=== PATIENT | female | born 1975 | race Caucasian/White ===

== ENCOUNTER 2018-12-17 09:15 | Emergency (ER) | payer OTHER ==
[~2018-12-17] VITALS: Ht 162.6 cm; Wt 122.5 kg
[2018-12-17] MEDS ORDERED: KETOROLAC 30 MG/ML VIAL. IV ONE (09:45)
[2018-12-17] MEDS ORDERED: METOCLOPRAMIDE HCL 10 MG/2 ML VIAL. IV ONE (09:45)
--- NOTE | 2018-12-17 09:49 | PHYS DOC ---
Adult General Chief Complaint Chief Complaint: ABDOMINAL PAIN HPI HPI Patient is a 43 year old female with history of diabetes type 2, hypothyroidism , who presents today complaining of 9 out of 10 left lower quadrant abdominal pain with nausea that began yesterday. Patient describes the pain as sharp and constant. Denies anything alleviating or exacerbating the pain. She states she has history of chronic constipation and occasionally takes MiraLAX. She does not remember her last bowel movement. She states she is on several medications that make her constipated. (NIKKI FREGOSO APRN) Review of Systems Review of Systems Constitutional: Denies fever or chills [] Eyes: Denies change in visual acuity, redness, or eye pain [] HENT: Denies nasal congestion or sore throat [] Respiratory: Denies cough or shortness of breath [] Cardiovascular: No additional information not addressed in HPI [] GI: Reports left lower quadrant abdominal pain, denies vomiting, bloody stools or diarrhea [] : Denies dysuria or hematuria [] Musculoskeletal: Denies back pain or joint pain [] Integument: Denies rash or skin lesions [] Neurologic: Denies headache, focal weakness or sensory changes [] All other systems were reviewed and found to be within normal limits, except as documented in this note. (NIKKI FREGOSO APRN) Current Medications Current Medications Current Medications Medications (Trade) Dose Ordered Sig/[place] Start Time Stop Time Status Last Admin Dose Admin Ketorolac Tromethamine (Toradol 30mg Vial) 30 mg 1X ONCE 12/17/18 09:45 12/17/18 09:49 DC 12/17/18 10:43 30 MG Magnesium Citrate (Citroma) 296 ml 1X ONCE 12/17/18 11:15 12/17/18 11:16 DC 12/17/18 11:05 296 ML Metoclopramide HCl (Reglan Vial) 10 mg 1X ONCE 12/17/18 09:45 12/17/18 09:49 DC 12/17/18 10:43 10 MG Sodium Chloride 1,000 ml @ 1,000 mls/hr 1X ONCE 12/17/18 10:00 12/17/18 10:59 DC 12/17/18 10:41 1,000 MLS/HR (FIFI MONSALVE MD) Allergies Allergies Allergies Coded Allergies Type Severity Reaction Last Updated Verified morphine Allergy Intermediate Shortness of Air 12/17/18 Yes topiramate Allergy Intermediate Rash 12/17/18 Yes ondansetron Adverse Reaction Mild Nausea 12/17/18 Yes (FIFI MONSALVE MD) Physical Exam Physical Exam Constitutional: Well developed, well nourished, no acute distress, non-toxic appearance. [] HENT: Normocephalic, atraumatic, bilateral external ears normal, oropharynx moist, no oral exudates, nose normal. [] Eyes: PERRLA, EOMI, conjunctiva normal, no discharge. [] Neck: Normal range of motion, no tenderness, supple, no stridor. [] Cardiovascular:Heart rate regular rhythm, no murmur [] Lungs & Thorax: Bilateral breath sounds clear to auscultation [] Abdomen: Obese abdomen. Bowel sounds normal, soft, mild tenderness on palpation of the left lower quadrant, no right upper quadrant or right lower quadrant tenderness, no masses, no pulsatile masses. [] Skin: Warm, dry, no erythema, no rash. [] Back: No tenderness, no CVA tenderness. [] Extremities: No tenderness, no cyanosis, no clubbing, ROM intact, no edema. [] Neurologic: Alert and oriented X 3, normal motor function, normal sensory function, no focal deficits noted. [] Psychologic: Affect normal, judgement normal, mood normal. [] (NIKKI FREGOSO APRN) Current Patient Data Vital Signs Vital Signs Date Time Temp Pulse Resp B/P (MAP) Pulse Ox O2 Delivery O2 Flow Rate FiO2 12/17/18 12:41 90 18 130/72 (91) 98 Room Air 12/17/18 09:44 98.3 98.3 (FIFI MONSALVE MD) Lab Values Laboratory Tests Test 12/17/18 09:47 12/17/18 11:08 12/17/18 11:20 Glucose (Fingerstick) 291 mg/dL (70-99) H White Blood Count 6.4 x10^3/uL (4.0-11.0) Red Blood Count 4.88 x10^6/uL (3.50-5.40) Hemoglobin 11.2 g/dL (12.0-15.5) L Hematocrit 34.6 % (36.0-47.0) L Mean Corpuscular Volume 71 fL (79-100) L Mean Corpuscular Hemoglobin 23 pg (25-35) L Mean Corpuscular Hemoglobin Concent 32 g/dL (31-37) Red Cell Distribution Width 19.4 % (11.5-14.5) H Platelet Count 289 x10^3/uL (140-400) Neutrophils (%) (Auto) 65 % (31-73) Lymphocytes (%) (Auto) 27 % (24-48) Monocytes (%) (Auto) 6 % (0-9) Eosinophils (%) (Auto) 1 % (0-3) Basophils (%) (Auto) 1 % (0-3) Neutrophils # (Auto) 4.2 x10^3uL (1.8-7.7) Lymphocytes # (Auto) 1.7 x10^3/uL (1.0-4.8) Monocytes # (Auto) 0.4 x10^3/uL (0.0-1.1) Eosinophils # (Auto) 0.1 x10^3/uL (0.0-0.7) Basophils # (Auto) 0.0 x10^3/uL (0.0-0.2) Platelet Estimate Adequate (ADEQUATE) Hypochromasia Slight Poikilocytosis Slight Anisocytosis Slight Microcytosis Mod Sodium Level 138 mmol/L (136-145) Potassium Level 4.1 mmol/L (3.5-5.1) Chloride Level 104 mmol/L (98-107) Carbon Dioxide Level 22 mmol/L (21-32) Anion Gap 12 (6-14) Blood Urea Nitrogen 10 mg/dL (7-20) Creatinine 0.6 mg/dL (0.6-1.0) Estimated GFR (Cockcroft-Gault) 109.6 BUN/Creatinine Ratio 17 (6-20) Glucose Level 295 mg/dL (70-99) H Calcium Level 8.4 mg/dL (8.5-10.1) L Total Bilirubin 0.4 mg/dL (0.2-1.0) Aspartate Amino Transferase (AST) 12 U/L (15-37) L Alanine Aminotransferase (ALT) 22 U/L (14-59) Alkaline Phosphatase 88 U/L (46-116) Total Protein 7.0 g/dL (6.4-8.2) Albumin 3.0 g/dL (3.4-5.0) L Albumin/Globulin Ratio 0.8 (1.0-1.7) L Lipase 124 U/L (73-393) Ethyl Alcohol Level < 10 mg/dL (0-10) Urine Collection Type Unknown Urine Color Yellow Urine Clarity Clear Urine pH 5.0 Urine Specific Maxie >=1.030 Urine Protein Negative mg/dL (NEG-TRACE) Urine Glucose (UA) >=1000 mg/dL (NEG) Urine Ketones (Stick) Negative mg/dL (NEG) Urine Blood Negative (NEG) Urine Nitrite Negative (NEG) Urine Bilirubin Negative (NEG) Urine Urobilinogen Dipstick 0.2 mg/dL (0.2 mg/dL) Urine Leukocyte Esterase Negative (NEG) Urine RBC Rare /HPF (0-2) Urine WBC Occ /HPF (0-4) Urine Squamous Epithelial Cells Few /LPF Urine Bacteria Few /HPF (0-FEW) Urine Yeast Present /HPF Urine Opiates Screen Neg (NEG) Urine Methadone Screen Neg (NEG) Urine Barbiturates Neg (NEG) Urine Phencyclidine Screen Neg (NEG) Urine Amphetamine/Methamphetamine Neg (NEG) Urine Benzodiazepines Screen Neg (NEG) Urine Cocaine Screen Neg (NEG) Urine Cannabinoids Screen Neg (NEG) Urine Ethyl Alcohol Neg (NEG) Laboratory Tests 12/17/18 11:08 Laboratory Tests 12/17/18 11:08 (FIFI MONSALVE MD) Lab Values Laboratory Tests Test 12/17/18 09:47 12/17/18 11:08 12/17/18 11:20 Glucose (Fingerstick) 291 mg/dL (70-99) H White Blood Count 6.4 x10^3/uL (4.0-11.0) Red Blood Count 4.88 x10^6/uL (3.50-5.40) Hemoglobin 11.2 g/dL (12.0-15.5) L Hematocrit 34.6 % (36.0-47.0) L Mean Corpuscular Volume 71 fL (79-100) L Mean Corpuscular Hemoglobin 23 pg (25-35) L Mean Corpuscular Hemoglobin Concent 32 g/dL (31-37) Red Cell Distribution Width 19.4 % (11.5-14.5) H Platelet Count 289 x10^3/uL (140-400) Neutrophils (%) (Auto) 65 % (31-73) Lymphocytes (%) (Auto) 27 % (24-48) Monocytes (%) (Auto) 6 % (0-9) Eosinophils (%) (Auto) 1 % (0-3) Basophils (%) (Auto) 1 % (0-3) Neutrophils # (Auto) 4.2 x10^3uL (1.8-7.7) Lymphocytes # (Auto) 1.7 x10^3/uL (1.0-4.8) Monocytes # (Auto) 0.4 x10^3/uL (0.0-1.1) Eosinophils # (Auto) 0.1 x10^3/uL (0.0-0.7) Basophils # (Auto) 0.0 x10^3/uL (0.0-0.2) Platelet Estimate Pending Sodium Level 138 mmol/L (136-145) Potassium Level 4.1 mmol/L (3.5-5.1) Chloride Level 104 mmol/L (98-107) Carbon Dioxide Level 22 mmol/L (21-32) Anion Gap 12 (6-14) Blood Urea Nitrogen 10 mg/dL (7-20) Creatinine 0.6 mg/dL (0.6-1.0) Estimated GFR (Cockcroft-Gault) 109.6 BUN/Creatinine Ratio 17 (6-20) Glucose Level 295 mg/dL (70-99) H Calcium Level 8.4 mg/dL (8.5-10.1) L Total Bilirubin 0.4 mg/dL (0.2-1.0) Aspartate Amino Transferase (AST) 12 U/L (15-37) L Alanine Aminotransferase (ALT) 22 U/L (14-59) Alkaline Phosphatase 88 U/L (46-116) Total Protein 7.0 g/dL (6.4-8.2) Albumin 3.0 g/dL (3.4-5.0) L Albumin/Globulin Ratio 0.8 (1.0-1.7) L Lipase 124 U/L (73-393) Ethyl Alcohol Level < 10 mg/dL (0-10) Urine Collection Type Unknown Urine Color Yellow Urine Clarity Clear Urine pH 5.0 Urine Specific Maxie >=1.030 Urine Protein Negative mg/dL (NEG-TRACE) Urine Glucose (UA) >=1000 mg/dL (NEG) Urine Ketones (Stick) Negative mg/dL (NEG) Urine Blood Negative (NEG) Urine Nitrite Negative (NEG) Urine Bilirubin Negative (NEG) Urine Urobilinogen Dipstick 0.2 mg/dL (0.2 mg/dL) Urine Leukocyte Esterase Negative (NEG) Urine RBC Rare /HPF (0-2) Urine WBC Occ /HPF (0-4) Urine Squamous Epithelial Cells Few /LPF Urine Bacteria Few /HPF (0-FEW) Urine Yeast Present /HPF Urine Opiates Screen Neg (NEG) Urine Methadone Screen Neg (NEG) Urine Barbiturates Neg (NEG) Urine Phencyclidine Screen Neg (NEG) Urine Amphetamine/Methamphetamine Neg (NEG) Urine Benzodiazepines Screen Neg (NEG) Urine Cocaine Screen Neg (NEG) Urine Cannabinoids Screen Neg (NEG) Urine Ethyl Alcohol Neg (NEG) Laboratory Tests 12/17/18 11:08 Laboratory Tests 12/17/18 11:08 (NIKKI FREGOSO APRN) EKG EKG [] (NIKKI FREGOSO APRN) Radiology/Procedures Radiology/Procedures []PROCEDURE: ABDOMEN SUPINE & UPRIGHT Supine and upright views of the abdomen Clinical indications: Sharp left lower, pain. Constipation. FINDINGS: There is large amount of fecal retention throughout the colon and rectosigmoid region. No small bowel obstruction is evident. No free air or air-fluid levels are seen. IMPRESSION: Significant fecal retention. Electronically signed by: Kayode Etienne MD (12/17/2018 10:24 AM) [place] [id number] DICTATED and SIGNED BY: KAYODE ETIENNE MD DATE: 12/17/18 1024 (NIKKI FREGSOO APRN) Course & Med Decision Making Course & Med Decision Making Pertinent Labs and Imaging studies reviewed. (See chart for details) This is a 43-year-old female patient presenting to the ED today with left lower quadrant abdominal pain with nausea that began yesterday. Patient has history of chronic constipation. She cannot remember the last time she had a bowel movement. CBC no acute findings, CMP with glucose of 295, normal anion gap, patient has known history of diabetes, she states she will use her insulin as long as she gets home. She was given a liter of fluid in the ED. Urine analysis is negative for infection. Abdominal x-ray noted for constipation. Patient was given for the same citrate in the ED. She was encouraged to increase her dietary fiber intake as well as a water intake, encourage her to use MiraLAX every day, stool softener also encouraged. Encouraged her to try and exercise and lose some weight. She was provided return precautions and discharged in stable condition. (NIKKI FREGOSO APRN) Course & Med Decision Making Staff Physician Addendum: I was working in the ER during the course of this patient's visit. I was available for consultation as needed, but I was not directly involved in the care of this patient. (FIFI MONSALVE MD) Dragon Disclaimer Dragon Disclaimer This electronic medical record was generated, in whole or in part, using a voice recognition dictation system. (NIKKI FREGOSO APRN) Departure Departure Impression: Primary Impression: Hyperglycemia Additional Impression: Constipation Disposition: 01 HOME, SELF-CARE Condition: STABLE Referrals: UNKNOWN PCP NAME (PCP) follow up with your doctor in 1-2 weeks Patient Instructions: Constipation, Adult, Hyperglycemia Additional Instructions: You were evaluated in the emergency room and noted to be constipated. Please increase your dope worker as well as fiber intake, try to exercise. Take MiraLAX every day. Drink magnesium citrate one bottle daily until you have a good bowel movement. Consider doing an enema tonight. Follow-up with your doctor in 1-2 weeks. Ensure you using her diabetes medicine as prescribed. Problem Qualifiers Additional Impression: Constipation Constipation type: unspecified constipation type Qualified Codes: K59.00 - Constipation, unspecified NIKKI FREGOSO APRN Dec 17, 2018 09:48 FIFI MONSALVE MD Dec 17, 2018 17:19
[2018-12-17] MEDS ORDERED: IV NORMAL SALINE 1000ML BAG 1,000 ML IV ONE (10:00)
--- NOTE | 2018-12-17 10:26 | RAD ---
Supine and upright views of the abdomen Clinical indications: Sharp left lower, pain. Constipation. FINDINGS: There is large amount of fecal retention throughout the colon and rectosigmoid region. No small bowel obstruction is evident. No free air or air-fluid levels are seen. IMPRESSION: Significant fecal retention. Electronically signed by: Jarad Etienne MD (12/17/2018 10:24 AM) [id number]
[2018-12-17] MEDS ORDERED: MAGNESIUM CITRATE 296 ML SOLUTION. PO ONE (11:15)
[2018-12-17 11:36] LABS: BASO % 1 % (0-3); EOS # 0.1 x10^3/uL (0.0-0.7); EOS % 1 % (0-3); HEMATOCRIT 34.6 % (36.0-47.0); HEMOGLOBIN 11.2 g/dL (12.0-15.5); LYMPH # 1.7 x10^3/uL (1.0-4.8); LYMPH % 27 % (24-48); MEAN CORPUSCULAR HEMOGLOBIN 23 pg (25-35); MEAN CORPUSCULAR HGB CONC 32 g/dL (31-37); MEAN CORPUSCULAR VOLUME 71 fL (79-100); MONO # 0.4 x10^3/uL (0.0-1.1); MONO % 6 % (0-9); NEUT # 4.2 x10^3uL (1.8-7.7); NEUT % 65 % (31-73); PLATELET COUNT 289 x10^3/uL (140-400); RED BLOOD COUNT 4.88 x10^6/uL (3.50-5.40); RED CELL DISTRIBUTION WIDTH 19.4 % (11.5-14.5); WHITE BLOOD COUNT 6.4 x10^3/uL (4.0-11.0)
[2018-12-17 11:48] LABS: BILIRUBIN,URINE NEGATIVE (NEG); CLARITY,URINE CLEAR; COLOR,URINE YELLOW; NITRITE,URINE NEGATIVE (NEG); PROTEIN,URINE NEGATIVE (NEG-TRACE); UROBILINOGEN,URINE 0.2 mg/dL (0.2 mg/dL)
[2018-12-17 11:49] LABS: CALCIUM 8.4 mg/dL (8.5-10.1); CREATININE 0.6 mg/dL (0.6-1.0); GFR 109.6; POTASSIUM 4.1 mmol/L (3.5-5.1)
[2018-12-17 11:57] LABS: BACTERIA,URINE FEW /HPF (0-FEW); BARBITURATES NEG (NEG); BENZODIAZEPINES NEG (NEG); CANNABINOIDS NEG (NEG); COCAINE NEG (NEG); METHADONE NEG (NEG); OPIATES NEG (NEG); PHENCYCLIDINE NEG (NEG); RBC,URINE RARE /HPF (0-2); SQUAMOUS EPITHELIAL CELL,UR FEW /LPF; WBC,URINE OCC /HPF (0-4); YEAST,URINE PRESENT /HPF
[2018-12-17 11:58] LABS: AMPHETAMINE/METHAMPHETAMINE NEG (NEG)
[2018-12-17 12:00] LABS: ALBUMIN/GLOBULIN RATIO 0.8 (1.0-1.7); TOTAL BILIRUBIN 0.4 mg/dL (0.2-1.0)
[2018-12-17 12:41] VITALS: BP 130/72
[2018-12-17 13:46] LABS: ANISOCYTOSIS SLIGHT; HYPOCHROMIA SLIGHT; MICROCYTOSIS MOD; PLT ESTIMATE ADEQUATE (ADEQUATE); POIKILOCYTOSIS SLIGHT
== END 2018-12-17 12:45 | disposition home or self-care (01) ==
LOC: ER 09:15
DX: K59.00 Constipation, unspecified (principal); E11.65 Type 2 diabetes mellitus with hyperglycemia; E03.9 Hypothyroidism, unspecified; Z88.5 Allergy status to narcotic agent; Z88.8 Allergy status to other drugs, medicaments and biological substances
CPT/HCPCS: 36415; 74021; 80053; 80307; 81001; 82962; 83690; 85025; 96361; 96374; 96375; 99284; G0480; J1885; J2765; J7030